=== PATIENT | female | born 1985 | race Caucasian/White ===

== ENCOUNTER 2023-07-23 09:19 | Outpatient (REF) | payer MEDICAID, SELFPAY ==
[2023-07-23 14:58] LABS: Alanine Aminotransferase 13 U/L (0-31); Albumin Level 4.1 g/dL (3.5-5.0); Alkaline Phosphatase 76 U/L (39-117); Anion Gap 11 (12-20); Aspartate Amino Transferase 15 U/L (5-31); Bilirubin Direct 0.1 mg/dL (0.0-0.5); Bilirubin Total 0.3 mg/dL (0.0-1.0); Blood Urea Nitrogen 12 mg/dL (9-16); Carbon Dioxide 23 mmol/L (22-29); Chloride 109 mmol/L (96-108); Cholesterol 146 mg/dL (<200); Estimated Glomerular Filt Rate > 60; Glucose Random 70 mg/dL (60-115); HDL Cholesterol 46 mg/dL (>40); LDL Cholesterol Calculated 90 mg/dL (<100); Sodium 139 mmol/L (135-145); Total Protein 7.3 g/dL (6.5-8.0); Triglycerides 53 mg/dL (<150)
[2023-07-23 15:12] LABS: Thyroid Stimulating Hormone 0.54 uIU/mL (0.32-4.0)
== END 2023-07-23 09:20 | disposition home or self-care (01) ==
LOC: HO.CHCLDS 09:19
PROVIDERS: Visit Provider Student in an Organized Health Care Education/Training Program
DX: R03.0 Elevated blood-pressure reading, without diagnosis of hypertension (principal); L65.9 Nonscarring hair loss, unspecified
CPT/HCPCS: 36415; 80048; 80061; 80076; 84443

== ENCOUNTER 2024-12-01 | Outpatient (REF) | payer MEDICAID, SELFPAY ==
[2024-12-01 17:28] LABS: TSH reflex Free T4 0.57 uIU/mL (0.32-4.0)
[2024-12-02 08:04] LABS: HBS Num1 > 1000.00 mIU/mL (0-7.99); HBc Num1 0.66 S/CO (0.00-0.79); HBsAGNum1 0.34 S/CO (0.00-0.99); HIV AB/AG Nonreactive (Nonreactive); HIV Num 1 0.08 S/CO (0.00-0.99); Hepatitis B Core Antibody Nonreactive (Nonreactive); Hepatitis B Surface Antigen Negative (Negative); ~HepC Num1 0.18 S/CO (0.00-0.79); ~Hepatitis B Surface Antibody REACTIVE (Nonreactive); ~Hepatitis C Antibody Nonreactive (Nonreactive)
[2024-12-02 08:33] LABS: Syphilis Screen Nonreactive (Nonreactive)
[2024-12-03 16:42] LABS: C. trachomatis RNA TMA NOT DETECTED (NOT DETECTED); N. gonorrhoeae RNA TMA NOT DETECTED (NOT DETECTED); Trichomonas (NAAT) NOT DETECTED (NOT DETECTED)
[2024-12-04 13:59] LABS: HPV Genotype 16 Negative (Negative); HPV Genotype 18 Negative (Negative); HPV High Risk Negative (Negative)
[2024-12-15 03:17] LABS: Estradiol Ultra Sensitive 45 pg/mL
--- OUTSIDE RECORDS SUMMARY | 2025-02-12 14:20 | XMS_ITS | Encounter Summary ---
Author Organization [employer] Address [address] [facility] [address] [place] [address] Care Team Providers Care Spearer Name Role Phone Vida Lind MD Primary Care Provider [phone] Reason for Visit * Reason Onset Date Comments Nurse Triage 05/09/2023 Encounter Details Date Type Department Care Team (Late st Contact Info) Description 05/09/2023 Telephone C [facility] [address], [place] [phone] Vida Lind MD [address] [place] [address] Nurse Triage Social History Tobacco Use Types [...] on filedocumented in this encounter Care Teams Spearer Relationship Specialty Start Date End Date Vida Lind MD [address] [place] [id number] PCP - General Family Medicine 05/07/18 documented as of this encounter
== END 2024-12-01 00:01 | disposition home or self-care (01) ==
LOC: HO.LNP
PROVIDERS: Visit Provider Advanced Practice Midwife
DX: Z11.3 Encounter for screening for infections with a predominantly sexual mode of transmission (principal); R61 Generalized hyperhidrosis
CPT/HCPCS: 82670; 83001; 84443; 86704; 86706; 86780; 86803; 87340; 87389; 87491; 87591; 87626; 87661; 88175

== ENCOUNTER 2024-12-01 15:12 | Outpatient (REF) | payer MEDICAID, SELFPAY ==
--- OUTSIDE RECORDS SUMMARY | 2024-12-01 18:30 | XMS_ITS | Clinical Summary ---
Author Organization [facility] ity Address [address] [place] [address] Care Team Providers Care Assistant Front Office Manager Name Role Phone Lucretia Aguirre MD Primary Care Provider [phone] Surgical History Surgery Date Site/Laterality Comments TONSILLECTOMY ADENOIDECTOMY, BILATERAL MYRINGOTOMY AND TUBES PROCEDURE: [place] TONSILLECTOMY & ADENOIDECTOMY <AGE 12 Social History Tobacco Use Types Packs/Day Years Used Date Smoking Tobacco: Never Alcohol Use Standard Drinks/Week Comments Not Currently 0 (1 standard drink = 0.6 oz pur e alcohol) Comments Unknown Sex and Gender Information Value Date Recorded Sex Assigned at Not on file Legal Sex Female 2:32 PM EST Gender Identity Not on file Sexual Orientation Not on file Obstetrics History Plan of Treatment Health Maintenance Due Date Last Done Comments DTaP,Tdap,and Td Vaccines (1 - Tdap) 2004 Hepatitis B Vaccines (1 of 3 - 19+ 3-dose series) 2004 Cervical Cancer Screening: P ap Smear 2006 Depression Screening 07/18/2022 HIV Screening 07/18/2022 Hepatitis C Screening 07/18/2022 Social Influencers of Health Screening 07/18/2022 COVID-19 Vaccine ( - 2023-2 5 season) 2024 Influenza Vaccine (Season Ended) 2025 HIB Vaccines Aged Out No longer eligi ble based on patient's age to complete this topic HPV Vaccines Aged Out No longer eligi ble based on patient's age to complete this topic Hepatitis A Vaccines Aged Out No long er eligible based on patient's age to complete this topic IPV Vaccines Aged Out No longer eligi ble based on patient's age to complete this topic MMR Vaccines Aged Out No longer eligi ble based on patient's age to complete this topic Meningococcal ACWY Vaccine Aged Out N o longer eligible based on patient's age to complete this topic Meningococcal B Vaccine Aged Out No l onger eligible based on patient's age to complete this topic Pneumococcal Vaccine: Pediat rics (0 to 5 Years) and At-Risk Patients (6 to 64 Years) Aged Out No longer eligible b ased on patient's age to complete this topic RSV Immunization Patients Un piter 20 months Aged Out No longer eligible b ased on patient's age to complete this topic Varicella Vaccines Aged Out No longer eligible based on patient's age to complete this topic Care Teams Assistant Front Office Manager Relationship Specialty Start Date End Date Lucretia Aguirre MD [address] [place] [address] PCP - General 05/17/23
--- OUTSIDE RECORDS SUMMARY | 2024-12-01 18:30 | XMS_ITS | Clinical Summary ---
Author Organization [facility] Address [address] [place] [address] Care Team Providers Care Car Dumper Name Role Phone Unavailable Primary Care Provider Unavailabl e Source Comments PLEASE NOTE, if this patient is a minor, it may be UNLAWFUL to discuss sensitive information that is contained in these records (such as FAMILY PLANNING, MENTAL HEALTH or SUBSTANCE ABUSE) with the minor patient's parent or other person without the patient's specific authorization.[facility] Medications penicillin V potassium (VEETID) 500 mg tablet Take 1 Tab by mouth 4 (four) times daily 20 Tab 12/11/2018 Active ibuprofen (ADVIL,MOTRIN) 600 mg tablet Take 1 Tab by mouth 4 (four) times daily as needed for pain 20 Tab 12/11/2018 Active ibuprofen 600 mg tabletIndicatio ns:[place] Take 1 Tablet by mouth 4 (four) times daily as needed for mild pain 20 Tablet 11/14/2023 Active amoxicillin (AMOXIL) 500 mg capsuleIndicati ons:[place] Take 1 Capsule by mouth 3 (three) times daily 21 Capsule 11/14/2023 Active Social History Tobacco Use Types Packs/Day Years Used Date Smoking Tobacco: Never Assessed Social Connections Answer Date Recorded Connectedness 0 05/08/2024 Financial Resource Strain Answer Date R ecorded Financial Resource Strain 0 2021 Stress Answer Date Recorded Stress 0 05/22/2022 Physical Activity Answer Date Recorded Physical Activity 0 05/22/2022 Food Insecurity Answer Date Recorded Food 0 05/14/2024 Transportation Needs Answer Date Record ed Transportation 0 05/22/2022 Housing Stability Answer Date Recorded Housing 0 05/22/2022 Safety and Environment Answer Date Liam rded Safety 0 05/22/2022 Utilities Answer Date Recorded Utilities 0 05/22/2022 Employment Answer Date Recorded Stress 0 05/08/2024 Comments Unknown Sex and Gender Information Value Date Recorded Sex Assigned at Not on file Legal Sex Female 12:27 PM PDT Gender Identity Not on file Sexual Orientation Not on file Last Filed Vital Signs Vital Sign Reading Time Taken Comments Blood Pressure 161/102 11/14/2023 3:00 PM EDT Pulse 92 11/14/2023 3:00 PM EDT Temperature - - Respiratory Rate - - Oxygen Saturation - - Inhaled Oxygen Concentration - - Weight - - Height - - Body Mass Index - - Plan of Treatment Health Maintenance Due Date Last Done Comments Anxiety Screening 1985 HPV Screening 1985 Hepatitis C Screening 1985 Pap + HPV 1985 Tobacco Screening 1985 HIV Screening 2000 Relationship Safety Screening/Counseling 2000 Cervical Cancer Screening 2006 Pap Smear 2006 Imm-Hepatitis B (2 of 3 - 19 + 3-dose series) 10/21/2018 09/23/2018 Dental BW 03/16/2024 03/14/2023 Dental Examination 03/16/2024 03/14/2023 Dental Perio Charting 03/16/2024 03/14/2023 Dental Prophy 03/16/2024 03/14/2023 [id number] ( season) 2024 Imm-Influenza (#1) 2024 06/10/2023, 1 , 05/14/2018 Alcohol and Drug Screen 08/19/2024 Depression Annual Screen 08/19/2024 Hypertension Screening (#1) 11/13/2024 Diabetes Screening 07/23/2026 07/23/2023 Dental FMX/Pano 03/16/2028 03/14/2023 Imm-DTaP/Tdap/Td (2 - Td or Tdap) 05/14/2028 018 Cervical Ablation/Cold-Knife Conization Discontinued Cervical Cryotherapy Discontinued Colposcopy Discontinued Endometrial Biopsy Discontinued Excision/Leep Discontinued HPV Genotyping Discontinued Vaginal Pap Discontinued Vulvoscopy Discontinued Procedures Procedure Name Priority Date/Time Associated Diagnosis Comments COMP PERIODONTAL EVALUATION - NEW/EST PATIENT Routine 03/14/2023 2:20 PM EDT Caries of enamel (incipient) Caries Encounter for dental examination INTRAORAL - COMP SERIES OF RADIOGRAPHIC IMAGES Routine 03/14/2023 2:20 PM EDT Caries of enamel (incipient) Caries Encounter for dental examination PROPHYLAXIS - ADULT Routine 03/14/2023 2 :20 PM EDT Caries of enamel (incipient) Caries Encounter for dental examination PERIODIC ORAL EVALUATION ESTABLISHED PATIENT Routine 03/14/2023 2:20 PM EDT Caries of enamel (incipient) Caries Encounter for dental examination from Last 3 Months or Most Recently Relevant to Health Maintenance Insurance [place] [facility] [place] [address]
--- OUTSIDE RECORDS SUMMARY | 2024-12-01 18:30 | XMS_ITS | Encounter Summary ---
Author Organization [employer] [employer] [facility] Address [address] [facility] 7[address] [place] [address] Care Team Providers Care Vp Strategic Planning Name Role Phone Vida Lind MD Primary Care Provider [phone] Reason for Visit * Reason Onset Date Comments Nurse Triage 05/09/2023 Encounter Details Date Type Department Care Team ([facility] st Contact Info) Description 05/09/2023 Telephone [facility] [address] [place], [place] [phone] Vida Lind MD [address] [place], [place] [phone] Nurse Triage Social History Tobacco Use Types Packs/Day Years Used Date Smoking Tobacco: Never Assessed Comments Unknown Sex and Gender Information Value Date Recorded Sex Assigned at Female 06/18/2022 10:34 AM EDT Legal Sex Female 10:34 AM EDT Gender Identity Female 05/13/2023 2:23 PM EDT Sexual Orientation Straight 05/13/2023 2: 23 PM EDT documented as of this encounter Miscellaneous Notes * Telephone Encounter - Celia Castillo RN - 05/09/2023 3:03 PM EDT Triage call Pt reports small lump on back near right side of scapula. Pt reports it started out as a very tiny ball but has now grown to the size of small marble. Pt reports no redness on skin but, it is tender to touch . Pt is advised to use heat on the area to see if that brings relief and Pt agrees. Pt PCP doesn't have any apts , ASK apt with Dr. Aguirre 05/13/23 @ 330pm. Insurance is verified as active prior to booking. Protocol Used: Skin Lump or Localized Swelling (Adult) Protocol-Based Disposition: See in Office or Video Visit within 3 Days Video visit not offered Positive Triage Question: * Small swelling or lump present > 1 week * All higher-acuity triage questions were negative Care Advice Discussed: * Reasons To Call Back - Fever occurs - Spreading redness occurs - Swelling becomes painful - Swelling persists over 1 week - You become worse * Telephone Encounter - Linda Deng - 05/09/2023 2:48 PM EDT Symptom: Skin Lump (back area) Outcome: Schedule an appointment to be seen within 3 days Reason: Caller denied all higher acuity questions The caller accepted this outcome documented in this encounter Plan of Treatment Not on file documented as of this encounter Visit Diagnoses Not on filedocumented in this encounter Care Teams Vp Strategic Planning Relationship Specialty Start Date End Date Vida Lind MD [address] [place] [phone] PCP - General Family Medicine 05/07/18 documented as of this encounter
--- OUTSIDE RECORDS SUMMARY | 2024-12-01 18:30 | XMS_ITS | Encounter Summary ---
Author Organization [employer] Address [address] [facility] [address] [place] [address] Care Team Providers Care Balance Staff Inspector Name Role Phone Vida Lind MD Primary Care Provider [phone] Encounter Details Date Type Department Care Team (Latest Contact Info) Description 12/01/2024 Travel Social History Tobacco Use Types Packs/Day Years Used Date Smoking Tobacco: Never Smokeless Tobacco: Never Alcohol Use Standard Drinks/Week Comments Never 0 (1 standard drink = 0.6 oz pur e alcohol) Depression Answer Date Recorded Patient Health Questionnaire-9 Score 0 07/17/2023 Patient Health Questionnaire-9 Score 0 07/17/2023 Last PHQ-9: Questionnaire Data Not on file 1 09/16/2022 Housing Stability Answer Date Recorded What is your housing situation today? I have sloan kulwant 07/03/[address] you li ve. Do you have problems with any of the following? None of the above 07/03/2023 Food Insecurity Answer Date Recorded Within the past 12 months, y ou worried that your food would run out before you got money to buy more: Never True 07/03/2023 Within the past 12 months,th e food you bought just didn't last and you didn't have enough money to get more: Never True Transportation Answer Date Recorded In the past 12 months, has l ack of transportation kept you from medical appts, meetings, work or from getting things needed for daily living? No 07/03/2023 Utilities Answer Date Recorded In the past 12 months, has t he electric, gas, oil or water company threatened to shut off services in your home? No 07/03/2023 Depression Answer Date Recorded Patient Health Questionnaire-2 Score 0 07/17/2023 Comments No Sex and Gender Information Value Date Recorded Sex Assigned at Female 06/18/2022 10:34 AM EDT Legal Sex Female 10:34 AM EDT Gender Identity Female 05/13/2023 2:23 PM EDT Sexual Orientation Straight 05/13/2023 2: 23 PM EDT documented as of this encounter Plan of Treatment Not on file documented as of this encounter Visit Diagnoses Not on filedocumented in this encounter Additional Health Concerns Assessment Noted Time PHQ-9 Depression Total Score: 0 07/17/20 10:30 AM EST documented as of this encounter Care Teams Balance Staff Inspector Relationship Specialty Start Date End Date Vida Lind MD [address] [place] [phone] PCP - General Family Medicine 05/07/18 documented as of this encounter
--- OUTSIDE RECORDS SUMMARY | 2024-12-01 18:30 | XMS_ITS | Encounter Summary ---
Author Organization [facility] Address [address] [facility] 7[address] [place] [address] Care Team Providers Care Rock Splitter Name Role Phone Vida Lind MD Primary Care Provider [phone] Reason for Visit * Reason Comments Gynecologic Exam Encounter Details Date Type Department Care Team (Latest Contact Info) Description 12/01/2024 2:45 PM EDT Procedure Visit [facility] [address], [place] [phone] Princess Kimbrough CNM [address], [place] [phone] Cervical cancer screening (Primary Dx); Screening examination for venereal disease; Night sweats Social History Tobacco Use Types Packs/Day Years [...] your housing situation today? I have sloan blum 07/03/[address] you li [...] PM EDT documented as of this encounter Last Filed Vital Signs Vital Sign Reading Time Taken Comments Blood Pressure 151/96 12/01/2024 2:45 PM EDT Pulse 86 12/01/2024 2:45 PM EDT Temperature 36.7 ??C (98 ??F) 12/01/2024 2:45 PM EDT Respiratory Rate 20 12/01/2024 2:45 PM EDT Oxygen Saturation 99% 12/01/2024 2:45 PM EDT Inhaled Oxygen Concentration - - Weight 97.6 kg (215 lb 3.2 oz) 12/01/2024 2:45 P M EDT Height 167.6 cm (5' 6 ) 12/01/2024 2:45 PM EDT Body Mass Index 34.73 12/01/2024 2:45 PM EDT documented in this encounter Progress Notes * Princess Kimbrough, BENITO - 12/01/2024 2:45 PM EDT Subjective Patient ID: Agata Ny is a 39 y.o. female who presents for pap Here with , , who remained for visit with Agata's consent. Last pap 19 years ago, had tubal ligation after 2nd child born. Feels okay with this, not planning any more pregnancies. It looks like she received Hep B immunoglobulin in 2019, and 2 doses of Hep B vaccine. Notes night sweats and occasional hot flashes, not correlated with menses. Monthly menses x 7d, no heavy flow or severe cramping. Last TSH 2022, normal. Mother had hysterectomy due to fibroids. Review of Systems Respiratory: Negative for shortness of breath. Cardiovascular: Negative for chest pain. Genitourinary: Negative for dyspareunia, dysuria, frequency, genital sores, hematuria, menstrual problem, pelvic pain, urgency, vaginal bleeding, vaginal discharge and vaginal pain. No abnormal pap, no abnormal bleeding, no breast pain, no breast mass, no nipple discharge Neurological: Negative for headaches. Objective BP (!) 151/96 (BP Location: Left arm, Patient Position: Sitting, BP Cuff Size: Large adult) Pulse86 Temp 98 ??F (36.7 ??C) (Temporal) Resp 20 Ht 5' 6 (1.676 m) Wt 215 lb 3.2 oz (97.6 kg) LMP 12/01/2024 (Exact Date) SpO2 99% BMI 34.73 kg/m?? Physical Exam Constitutional: Appearance: Normal appearance. Chest: Breasts: Right: Normal. No swelling, bleeding, inverted nipple, mass, nipple discharge, skin change or tenderness. Left: Normal. No swelling, bleeding, inverted nipple, mass, nipple discharge, skin change or tenderness. Genitourinary: General: Normal vulva. Labia: Right: No rash, tenderness, lesion or injury. Left: No rash, tenderness, lesion or injury. Vagina: Normal. No signs of injury and foreign body. No vaginal discharge, erythema, tenderness, bleeding or lesions. Cervix: No cervical motion tenderness, discharge, friability, lesion, erythema, cervical bleeding or eversion. Uterus: Normal. Not enlarged and not tender. Adnexa: Right adnexa normal and left adnexa normal. Right: No mass, tenderness or fullness. Left: No mass, tenderness or fullness. Comments: Menses noted Lymphadenopathy: Upper Body: Right upper body: No supraclavicular or axillary adenopathy. Left upper body: No supraclavicular or axillary adenopathy. Neurological: Mental Status: She is alert. Psychiatric: Mood and Affect: Mood normal. Behavior: Behavior normal. Assessment/Plan Diagnoses and all orders for this visit: Cervical cancer screening - Pap Smear Cotest today. Will repeat in 3y if normal as precaution as last pap at 21. Screening examination for venereal disease - Hepatitis B Core Antibody, Total; Future - Hepatitis B Surface Antibody, Qualitative; Future - Hepatitis B surface antigen, EIA; Future - Hepatitis C Antibody with Reflex to HCV, RNA, Quantitative, Real-Time PCR; Future - HIV-1/2 Antigen and Antibodies, Fourth Generation, with Reflexes; Future - Syphilis Screen; Future - STI testing add on (NG, CT, Trich) Agrees to pap based and serum labs. Night sweats - FSH; Future - Estradiol; Future - TSH W/Reflex to FT4; Future Reviewed many causes for symptoms. Will recheck TSH with estradiol and FSH. If all normal, and regular menses, followup with PCP. Report irregular menses, or missed menses. Elevated BP today. Asymptomatic. Has BP cuff at home, advised to check regularly and followup with PCP if elevated. documented in this encounter Plan of Treatment Scheduled Orders Name Type Priority Associated Diagnoses Orde r Schedule Pap Smear Pathology and Cytology Routine Cervical cancer screening Ordered: 12/01/2024 Hepatitis B Core Antibody, Total Lab Routine Screening examination for venereal disease Expected: 12/01/2024 (Approximate), Expires: 12/01/2025 Hepatitis B Surface Antibody, Qualitative Lab Routine Screening examination for venereal disease Expected: 12/01/2024 (Approximate), Expires: 12/01/2025 Hepatitis B surface antigen, EIA Lab Routine Screening examination for venereal disease Expected: 12/01/2024 (Approximate), Expires: 12/01/2025 Hepatitis C Antibody with Reflex to HCV, RNA, Quantitative, Real-Time PCR Lab Routine Screening examination for venereal disease Expected: 12/01/2024 (Approximate), Expires: 12/01/2025 HIV-1/2 Antigen and Antibodies, Fourth Generation, with Reflexes Lab Routine Screening examination for venereal disease Expected: 12/01/2024 (Approximate), Expires: 12/01/2025 Syphilis Screen Lab Routine Screening examination for venereal disease Expected: 12/01/2024 (Approximate), Expires: 12/01/2025 FSH Lab Routine Night sweats Expected: 12/01/2024, Expires: 12/01/2025 Estradiol Lab Routine Night sweats Expected: 12/01/2024 (Approximate), Expires: 12/01/2025 STI testing add on (NG, CT, Trich) Pathology and Cytology Routine Screening examination for venereal disease Ordered: 12/01/2024 documented as of this encounter Procedures Procedure Name Priority Date/Time Associated Diagnosis Comments TSH W/REFLEX TO FT4 Routine 12/01/2024 3 :17 PM EDT Night sweats documented in this encounter Results * TSH W/Reflex to FT4 (12/01/2024 3:17 PM EDT) TSH reflex Free T4 0.57 0.32 - 4.0 uIU/mL [facility] Blood Venous blood specimen / Unknown 12/01/2024 3:17 PM EDT 12/01/2024 4:10 PM EDT us Princess [facility] LAB BLOOD ORDERABLES Pattie restrepo Result [facility] [address] [place] [address] [phone] documented in this encounter Visit Diagnoses Diagnosis Cervical cancer screening- Primary Screening for malignant neoplasm of the cervix Screening examination for venereal disease Night sweats Generalized hyperhidrosis documented in this encounter Additional Health Concerns Assessment Noted Time PHQ-9 Depression Total Score: 0 07/17/20 23 10:30 AM EST documented as of this encounter Care Teams Rock Splitter Relationship Specialty Start Date End Date Vida Lind MD [address] [place] [phone] PCP - General Family Medicine 05/07/18 documented as of this encounter
--- OUTSIDE RECORDS SUMMARY | 2024-12-01 18:30 | XMS_ITS | Clinical Summary ---
Author Organization [facility] Address [address] [facility] 7t [place] [address] Care Team Providers Care Wrister Name Role Phone Vida Lind MD Primary Care Provider [phone] Allergies No known active allergies Medications No known medications Active Problems Problem Noted Date Diagnosed Date Elevated blood pressure reading 05/13/2023 Assessment & Plan (05/13/2023 4:30 PM EDT): - If SBP < 140/DBP <90 mmHg in more than 75% of home self-monitoring, continue current medication regimen and make f/u with PCP in 3 month - If SBP >140-165/DBP >90-115 mmHg , Will dx with HTN and start amlodipine 5 mg qdaily and f/u with PCP in 1 month - If SBP > 165/ DBP> 115 mmHg, consult with covering provider - If SBP <90/DBP <50 mmHg, consult with covering provider. 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 Concern of location close to spine. Encounters Date Type Department Care Team Description 12/01/2024 2:45 PM EDT Procedure Visit [facility] MEDICINE [address] [place] [address] Princess Kimbrough CNM Cervical cancer screening (Primary Dx); Screening examination for venereal disease; Night sweats 12/01/2024 Travel 11/11/2024 Travel from Last 3 Months Immunizations Name Administration Dates Next Due Hep B Immune Globulin 09/23/2018 Hep B, adult 09/23/2018 Influenza injectable quadriv alent IIV4 with preservative 05/14/2018 Influenza injectable quadrivalent preservative f ree 06/10/2023,06/11/2021 Tdap 05/14/2018 Family History Medical History Relation Name Comments Breast cancer Neg Hx Colon cancer Neg Hx Ovarian cancer Neg Hx Social History Tobacco Use Types Packs/Day Years Used Date Smoking Tobacco: Never Smokeless Tobacco: Never Tobacco Cessation:Counseling Given: No Alcohol Use Standard Drinks/Week Comments Never 0 (1 standard drink = 0.6 oz pur e alcohol) Depression Answer Date Recorded Patient Health Questionnaire-9 Score 0 07/17/2023 Patient Health Questionnaire-9 Score 0 07/17/2023 Last PHQ-9: Questionnaire Data Not on file 1 09/16/2022 Housing Stability Answer Date Recorded What is your housing situation today? I have sloanedward blum 07/03/[address] you [...] Orientation Straight 05/13/2023 2: 23 PM EDT Last Filed Vital Signs Vital Sign Reading [...] Mass Index 34.73 12/01/2024 2:45 PM EDT Plan of Treatment Health Maintenance Due Date Last Done Comments HIV Screening 1985 Alcohol/Substance Use Screening 1997 Hepatitis C Screening 11/11/2003 Pap Smear 2006 Cervical Cancer Screening 11/11/2015 HPV/Cotest 11/11/2015 Hepatitis B Vaccines (2 of 3 - 19+ 3-dose series) 10/21/2018 09/23/2018 COVID-19 Vaccine (3 - season) 2024 05/06/2021, 04/15/2021 SDOH Screening 07/03/2024 07/03/2023 Depression Screening 07/17/2024 07/17/2023, 07/17/20 23 Family Planning (PISQ) 12/01/2025 12/01/2024 Tobacco Screening 12/01/2025 12/01/2024 DTaP/Tdap/Td Vaccines (2 - Td or Tdap) 05/14/2028 05/14/2018 Zoster Vaccines (1 of 2) 11/11/2035 RSV Patients and Patients Aged 60 years or older (1 - 1-dose 75+ series) 2060 Influenza Vaccine Completed 05/25/2024, , 06/11/2021, Additional history exists HIB Vaccines Aged Out No longer eligi [...] patient's age to complete this topic Meningococcal Vaccine Aged Out No jimy chiquita eligible based on patient's age to complete this topic Pneumococcal Vaccine: Pediatrics (0 to 5 Years) and At-Risk Patients (6 to 49) Years) Aged Out No longer eligible based on patient's age to complete this topic RSV under 20 months Aged Out No longe r eligible based on patient's age to complete this topic Rotavirus Vaccines Aged Out No longer eligible based on patient's age to complete this topic Procedures Procedure Name Priority Date/Time Associated Diagnosis Comments TSH W/REFLEX TO FT4 Routine 12/01/2024 3 :17 PM EDT Night sweats from Last 3 Months Results * TSH W/Reflex to FT4 (12/01/2024 3:17 PM EDT) TSH reflex Free T4 0.57 0.32 - 4.0 uIU/mL [facility] Blood Venous blood specimen / Unknown 12/01/2024 3:17 PM EDT 12/01/2024 4:10 PM EDT us Princess Kimbrough [facility] BLOOD ORDERABLES Pattie restrepo Result [facility] [address] [place] [phone] from Last 3 Months Insurance [facility] , [address] [place] [phone] [facility] Care Teams Wrister Relationship Specialty Start Date End Date Vida Lind MD [address] [place] [phone] PCP - General Family Medicine 05/07/18
== END 2024-12-01 15:13 | disposition home or self-care (01) ==
LOC: HO.HHCL 15:12
PROVIDERS: Visit Provider Advanced Practice Midwife
DX: Z13.89 Encounter for screening for other disorder (principal)